=== PATIENT | female | born 1945 | race Caucasian/White ===

== ENCOUNTER 2017-02-21 19:28 | Emergency (ER) | payer MEDICARE ==
[~2017-02-21] VITALS: Ht 167.6 cm; Wt 77.1 kg
[2017-02-21] MEDS ORDERED: SODIUM CHLORIDE FLUSH 10ML SYR IVF ONE (20:00)
[2017-02-21] MEDS ORDERED: LEVO125T5 PO (20:21)
[2017-02-21 20:39] LABS: BLOOD UREA NITROGEN 25 mg/dL (7-18)
[2017-02-21 20:44] LABS: IS PT STATUS REG ER OR PRE ER? YES
[2017-02-21 22:06] VITALS: BP 132/77
== END 2017-02-21 22:08 | disposition home or self-care (01) ==
LOC: ED 22:02
DX: R07.89 Other chest pain (principal); E03.9 Hypothyroidism, unspecified; Z87.891 Personal history of nicotine dependence
CPT/HCPCS: 36415; 71010; 80048; 82040; 83880; 84484; 85025; 93005

== ENCOUNTER → 2018-06-07 | Outpatient (CLI) | payer MEDICARE ==
[~2018-06-07] MED LIST: LEVO125T5 PO
== END | disposition home or self-care (01) ==
LOC: CFH 10:09
PROVIDERS: ATTEND Internal Medicine
DX: Z12.31 Encounter for screening mammogram for malignant neoplasm of breast (principal); M81.0 Age-related osteoporosis without current pathological fracture
CPT/HCPCS: 77080; 77067